=== PATIENT | female | born 1940 | race Caucasian/White ===

== ENCOUNTER 2021-06-28 21:22 | Emergency (ER) | payer MEDICARE, MEDICAID ==
[~2021-06-28] VITALS: Ht 172.7 cm; Wt 90.9 kg
[2021-06-28] MEDS ORDERED: PROAIR HFA0.09 MG/AC IH (22:00)
[2021-06-28] MEDS ORDERED: ST. JOSEPH ASPI81 MG PO (22:01)
[2021-06-28 22:19] LABS: HEMOGLOBIN 14.4 g/dL (12.5-16.0); LYMPH# 0.72 K/mm3 (1.50-4.00); MEAN CELL VOLUME 89 fl (78-100); MEAN CORPUSCULAR HEMOGLOBIN 30 pg (27-31); MEAN CORPUSCULAR HGB CONC 34 g/dL (33-37); MEAN PLATELET VOLUME 10.6 fl (7.4-10.4); MONO # 0.39 K/mm3 (0.20-0.80); PLATELET COUNT 230 K/mm3 (130-400); RED BLOOD COUNT 4.74 M/mm3 (4.10-5.30); RED CELL DISTRIBUTION WIDTH 13.3 % (11.5-14.5); WHITE BLOOD COUNT 8.2 K/mm3 (4.8-10.8)
[2021-06-28 22:28] LABS: ALBUMIN 3.2 g/dL (3.4-4.8)
[2021-06-28 22:29] LABS: POTASSIUM 3.2 mmol/L (3.5-5.1); SODIUM 136 mmol/L (136-145)
[2021-06-28 22:30] LABS: CALCIUM 8.7 mg/dL (8.3-10.5)
[2021-06-28 22:31] LABS: GLUCOSE 173 mg/dL (65-105); TOTAL PROTEIN 6.3 g/dL (6.2-8.1)
[2021-06-28 22:32] LABS: CARBON DIOXIDE 24 mmol/L (23-31)
[2021-06-28 22:33] LABS: TOTAL BILIRUBIN 0.6 mg/dL (0.2-1.2)
[2021-06-28 22:36] LABS: AST-SGOT 68 U/L (5-34)
[2021-06-28 22:38] LABS: ALT/SGPT 34 U/L (0-55)
[2021-06-28 22:51] LABS: PARTIAL THROMBOPLASTIN TIME 30.4 SECONDS (21.0-32.0); PROTHROMBIN TIME 10.7 SECONDS (9.0-12.0)
[2021-06-28 22:53] LABS: D-DIMER 1.05 mg/L FEU (0.15-0.50); TROPONIN-I < 0.030 ng/mL (<0.030)
[2021-06-28 23:54] LABS: URINE APPEARANCE CLOUDY; URINE BILIRUBIN NEGATIVE (NEGATIVE); URINE BLOOD TRACE (NEGATIVE); URINE COLOR YELLOW; URINE GLUCOSE NEGATIVE (NEGATIVE); URINE KETONE 1+ (NEGATIVE); URINE LEUKOCYTE ESTERASE 1+ (NEGATIVE); URINE NITRATE POSITIVE (NEGATIVE); URINE PROTEIN(semi-quant) 1+ (NEGATIVE); URINE UROBILINOGEN NORMAL (NORMAL)
[2021-06-28 23:55] LABS: URINE MUCUS PRESENT (NOT PRESENT)
[2021-06-29 17:04] VITALS: BP 173/84
== END 2021-06-29 17:30 | disposition short-term general hospital (02) ==
LOC: ED 21:22
PROVIDERS: Nurse Practitioner
DX: U07.1 COVID-19 (principal); J12.82 Pneumonia due to coronavirus disease 2019; N39.0 Urinary tract infection, site not specified; R09.02 Hypoxemia; J45.909 Unspecified asthma, uncomplicated; Z87.891 Personal history of nicotine dependence
CPT/HCPCS: J0696; J1100; J7030; J7050; Q9967